=== PATIENT | male | born 1980 | race Caucasian/White ===

== ENCOUNTER 2016-09-10 01:31 | Emergency (ER) | payer OTHER ==
[~2016-09-10] VITALS: Ht 167.6 cm; Wt 87.1 kg
[~2016-09-10 01:31] MED LIST: CLIN-73 PO; HYDR-3498 PO; LORA-441 PO; ONDA4TAB35 PO; ZOF8 PO
[2016-09-10 01:35] VITALS: Ht 167.6 cm; Wt 87.1 kg
[2016-09-10] MEDS ORDERED: CETI10CA PO (02:46)
[2016-09-10] MEDS ORDERED: FLUT9.9S NASAL (02:46)
[2016-09-10] MEDS ORDERED: MECL12.574 PO (02:46)
--- NOTE | 2016-09-10 02:52 | ERD ---
ER Documentation Chief Complaint Date/Time DATE: 09/10/16 TIME: 02:48 Chief Complaint Pt c/o dizziness with head movement and concussion 2 yrs ago HPI 36-year-old male presents here in emergency department for complaints of dizziness, spinning sensation on sudden movement of the head. Patient has been having runny nose nasal congestion for the last 2 days. Patient feels really congested. Patient states that whenever he suddenly moved his head, he feels some dizziness. Patient has history of concussion 2 years ago, patient just recently had an MRI done 4 days ago, is reading for results. Patient denies any head injury. Patient denies any nausea vomiting. Patient denies any fever or chills. Patient did not have any purulent discharge from the nose. Patient does not have any ear discharge. Patient denies any ear pain. Patient denies any chest pain or palpitations. Patient denies any focal weakness numbness or tingling. Patient denies any changes in balance or memory. ROS All systems reviewed and are negative except as per history of present illness. Medications Home Meds Active Scripts Fluticasone Propionate (Flonase Allergy Relief) 9.9 Ml [place].susp, 1 SPRAY NASAL BID, #1 BOTTLE TO EACH NOSTRIL Prov:OPAL PRATT NP 09/10/16 Meclizine Hcl* (Antivert*) 12.5 Mg Tab, 25 MG PO Q6H Y for DIZZINESS, #20 TAB Prov:OPAL PRATT NP 09/10/16 Cetirizine Hcl* (Zyrtec*) 10 Mg Capsule, 10 MG PO DAILY, #30 TAB.CHEW Prov:OPAL PRATT NP 09/10/16 Ondansetron Hcl* (Zofran* ODT) 8 mg -ODT Tab.disper, 8 MG PO Q6 Y for NAUSEA AND /OR VOMITING, #8 TAB Prov:MANGO CARDONA MD 02/22/16 Lorazepam* (Ativan*) 0.5 Mg Tablet, 0.5 MG PO Q8, #15 TAB Prov:MANGO CARDONA MD 02/22/16 Ondansetron Hcl* (Zofran* ODT) 4 mg -ODT Tab.disper, 4 MG PO BID Y for NAUSEA AND/OR VOMITING, #10 TAB 0 Refills Prov:BETY VELÁSQUEZ PA-C 10/12/15 Hydrocodone Bit-Acetaminophen* ([place]*) 5-325 Mg Tab, 1 TAB PO Q6 Y for PAIN, # 7 TAB Prov:OPAL PRATT NP 10/11/15 Clindamycin Hcl* (Clindamycin Hcl*) 300 Mg Capsule, 300 MG PO TID for 10 Days, CAP Prov:OPAL PRATT NP 10/11/15 Reported Medications [none] Unknown Strength No Conflict Check 10/11/15 Allergies Allergies: Coded Allergies: Penicillins (Verified Allergy, Unknown, 02/22/16) ibuprofen (Verified Allergy, Unknown, INCREASED HEARTRATE, 02/22/16) PMhx/Soc Medical and Surgical Hx: pt denies Surgical Hx History of Surgery: Yes (WISDOM TEETH REMOVAL BOTTOM BILAT. ) Anesthesia Reaction: No Hx Neurological Disorder: Yes (concussion) Hx Respiratory Disorders: No Hx Cardiac Disorders: No Hx Psychiatric Problems: Yes (depression) Hx Miscellaneous Medical Probl: No Hx Alcohol Use: No Hx Substance Use: No Hx Tobacco Use: No Smoking Status: Never smoker FmHx Family History: No coronary disease, No diabetes, No other Physical Exam Vitals Vital Signs Date Time Temp Pulse Resp B/P Pulse Ox O2 Delivery O2 Flow Rate FiO2 09/10/16 01:35 97.8 73 16 128/86 98 Physical Exam GENERAL: The patient is well developed and appropriate for usual state of health, in no apparent distress. CHEST: Clear to auscultation bilaterally. There are no rales, wheezes or rhonchi. HEART: Regular rate and rhythm. No murmurs, clicks, rubs or gallops. No S3 or S4. ABDOMEN: Soft, nontender and nondistended. Good bowel sounds. No rebound or guarding. No gross peritonitis. No gross organomegaly or masses. No Barry sign or McBurney point tenderness. BACK: No midline or flank tenderness. EXTREMITIES: Equal pulses bilaterally. There is no peripheral clubbing, cyanosis or edema. No focal swelling or erythema. Full range of motion. Grossly neurovascularly intact. NEURO: Alert and oriented. Cranial nerves 2-12 intact. Motor strength in all 4 extremities with 5/5 strength. Sensation grossly intact. Normal speech and gait. Positive Cris-Hallpike exam. Patient negative Romberg sign. Negative pronator drift. SKIN: There is no apparent rash or petechia. The skin is warm and dry. HEMATOLOGIC AND LYMPHATIC: There is no evidence of excessive bruising or lymphedema. No gross cervical, axillary, or inguinal lymphadenopathy. Results 24 hrs I offered for patient of the CT scan of the brain but refused at this time, patient verbalized that he had an MRI of the brain done 4 days ago, and will wait for results in 2 days. Patient did not have any recent reinjury. Procedures/MDM Medical Decision Making: Patient symptoms aside is consistent with benign positional vertigo, most likely consistent with upper respiratory tract infection. There is low suspicion for neurological emergencies at this time since patients neurologic exam is normal. Patient did not have any altered level consciousness, vomiting, changes in balance or memory and did not have any recent head injury. CT scan of the brain not indicated at this time, also patient had an MRI of the brain done already. Patient was given prescription for meclizine, Zyrtec, Flonase, is advised to follow up with primary care doctor in 2-3 days for reevaluation of symptoms and to follow up with the results of MRI, patient was advised to return to emergency department for any worsening symptoms. Departure Diagnosis: Primary Impression: URI (upper respiratory infection) URI type: unspecified viral URI Qualified Code: J06.9 - Viral upper respiratory tract infection Additional Impression: Benign positional vertigo Laterality: unspecified laterality Qualified Code: H81.10 - Benign positional vertigo, unspecified laterality Condition: Stable Patient Instructions: Uri, Viral, No Abx (Adult) OPAL PRATT NP Sep 10, 2016 02:52
[2016-09-10 03:11] VITALS: BP 135/79; PULSE 65; RESP 16
[2016-09-11] MEDS ORDERED: FLUT9.9S NASAL (03:06)
== END 2016-09-10 03:10 | disposition home or self-care (01) ==
LOC: FTE 01:31
DX: J06.9 Acute upper respiratory infection, unspecified (principal); H81.10 Benign paroxysmal vertigo, unspecified ear
CPT/HCPCS: 99283

== ENCOUNTER 2016-09-11 02:15 | Emergency (ER) | payer OTHER ==
[~2016-09-11] VITALS: Ht 167.6 cm; Wt 89.7 kg
[~2016-09-11 02:15] MED LIST changes: +CETI10CA PO; +FLUT9.9S NASAL; +MECL12.574 PO
[2016-09-11 02:27] VITALS: Ht 167.6 cm; Wt 89.7 kg
[2016-09-11] MEDS ORDERED: FLUT9.9S NASAL (03:06)
--- NOTE | 2016-09-11 03:17 | ERD ---
ER Documentation Chief Complaint Date/Time DATE: 09/11/16 TIME: 03:15 Chief Complaint on and off nosebleeding x 2 weeks. no active nosebleeding HPI 36-year-old male presents to emergency department for complaints of on-and-off nosebleed episodes for the last 2 weeks, last episode was 2 hours prior to arrival. Patient has been having runny nose nasal congestion, was seen actually yesterday here for URI symptoms. Patient nasal bleeding has stopped already. Patient did not have any trauma in the nose. Patient denies any head injury. Patient denies any bruising. Patient denies any ecchymosis. Patient denies any other bleeding symptoms. ROS All systems reviewed and are negative except as per history of present illness. Medications Home Meds Active Scripts Fluticasone Propionate (Flonase Allergy Relief) 9.9 Ml [place].susp, 1 SPRAY NASAL BID, #1 BOTTLE TO EACH NOSTRIL Prov:OPAL PRATT NP 09/11/16 Fluticasone Propionate (Flonase Allergy Relief) 9.9 Ml [place].susp, 1 SPRAY NASAL BID, #1 BOTTLE TO EACH NOSTRIL Prov:OPAL PRATT NP 09/10/16 Meclizine Hcl* (Antivert*) 12.5 Mg Tab, 25 MG PO Q6H Y for DIZZINESS, #20 TAB Prov:OPAL PRATT NP 09/10/16 Cetirizine Hcl* (Zyrtec*) 10 Mg Capsule, 10 MG PO DAILY, #30 TAB.CHEW Prov:OPAL PRATT NP 09/10/16 Ondansetron Hcl* (Zofran* ODT) 8 mg -ODT Tab.disper, 8 MG PO Q6 Y for NAUSEA AND /OR VOMITING, #8 TAB Prov:MANGO CARDONA MD 02/22/16 Lorazepam* (Ativan*) 0.5 Mg Tablet, 0.5 MG PO Q8, #15 TAB Prov:MANGO CARDONA MD 02/22/16 Ondansetron Hcl* (Zofran* ODT) 4 mg -ODT Tab.disper, 4 MG PO BID Y for NAUSEA AND/OR VOMITING, #10 TAB 0 Refills Prov:BETY VELÁSQUEZ PA-C 10/12/15 Hydrocodone Bit-Acetaminophen* ([place]*) 5-325 Mg Tab, 1 TAB PO Q6 Y for PAIN, # 7 TAB Prov:OPAL PRATT NP 10/11/15 Clindamycin Hcl* (Clindamycin Hcl*) 300 Mg Capsule, 300 MG PO TID for 10 Days, CAP Prov:OPAL PRATT CHASSIS DRIVER 10/11/15 Reported Medications [none] Unknown Strength No Conflict Check 10/11/15 Allergies Allergies: Coded Allergies: Penicillins (Verified Allergy, Unknown, 02/22/16) ibuprofen (Verified Allergy, Unknown, INCREASED HEARTRATE, 02/22/16) PMhx/Soc History of Surgery: Yes (WISDOM TEETH REMOVAL BOTTOM BILAT. ) Anesthesia Reaction: No Hx Neurological Disorder: Yes (concussion) Hx Respiratory Disorders: No Hx Cardiac Disorders: No Hx Psychiatric Problems: Yes (depression) Hx Miscellaneous Medical Probl: No (TBI) Hx Alcohol Use: No Hx Substance Use: No Hx Tobacco Use: No FmHx Family History: No coronary disease, No diabetes, No other Physical Exam Vitals Vital Signs Date Time Temp Pulse Resp B/P Pulse Ox O2 Delivery O2 Flow Rate FiO2 09/11/16 02:27 97.7 80 20 127/79 98 Physical Exam GENERAL: The patient is well developed and appropriate for usual state of health, in no apparent distress. HEENT: Atraumatic. Ears: Normal tympanic membrane, no erythema or bulging. No ear canal swelling. No ear discharge. Nose: normal nasal turbinates, thick crusts of dry blood in bilateral naris. No active bleeding noted at this time. Throat: oropharynx clear. No tonsillar swelling or tonsillar exudates. No lymphadenopathy. CHEST: Clear to auscultation bilaterally. There are no rales, wheezes or rhonchi. HEART: Regular rate and rhythm. No murmurs, clicks, rubs or gallops. No S3 or S4. ABDOMEN: Soft, nontender and nondistended. Good bowel sounds. No rebound or guarding. No gross peritonitis. No gross organomegaly or masses. No Barry sign or McBurney point tenderness. BACK: No midline or flank tenderness. EXTREMITIES: Equal pulses bilaterally. There is no peripheral clubbing, cyanosis or edema. No focal swelling or erythema. Full range of motion. Grossly neurovascularly intact. NEURO: Alert and oriented. Cranial nerves 2-12 intact. Motor strength in all 4 extremities with 5/5 strength. Sensation grossly intact. Normal speech and gait. SKIN: There is no apparent rash or petechia. The skin is warm and dry. HEMATOLOGIC AND LYMPHATIC: There is no evidence of excessive bruising or lymphedema. No gross cervical, axillary, or inguinal lymphadenopathy. Procedures/MDM Medical decision making: Patient symptoms is likely consistent with epistaxis, Patient states that he has been blowing his nose hard and assessment he get blood streaks from the nasal discharge. It stops immediately afterwards. Patient does not have any other bleeding symptoms. Patient does not have any active bleeding from the nose at this time. Patient did not have any trauma in the nose. Patient was given for Flonase, is advised to apply Vaseline and bilateral naris, patient is advised to follow with primary doctor to 3 days for reevaluation of symptoms. Patient was advised to return to emergency department for any worsening symptoms. Departure Diagnosis: Primary Impression: Epistaxis Condition: Stable Patient Instructions: Epistaxis (Adult) Referrals: ELYSE WOODARD (PCP) Additional Instructions: apply vaseline both nares OPAL PRATT NP Sep 11, 2016 03:17
[2016-09-11 03:40] VITALS: BP 139/79; PULSE 66; RESP 18; TEMP 98.3
== END 2016-09-11 03:40 | disposition home or self-care (01) ==
LOC: FTE 02:15
DX: R04.0 Epistaxis (principal)
CPT/HCPCS: 99283

== ENCOUNTER 2016-09-15 03:08 | Emergency (ER) | payer OTHER ==
[~2016-09-15] VITALS: Ht 167.6 cm; Wt 86.8 kg
[2016-09-15 03:14] VITALS: Ht 167.6 cm; Wt 86.8 kg
[2016-09-15] MEDS ORDERED: ONDANSETRON (ODT) 4 MG TAB ODT STA (04:53)
[2016-09-15] MEDS ORDERED: MECLIZINE 12.5 MG TAB PO ONE (05:00)
[2016-09-15] MEDS ORDERED: MECL12.574 PO (05:01)
[2016-09-15] MEDS ORDERED: ONDA4TAB14 PO (05:01)
--- NOTE | 2016-09-15 05:06 | ERA ---
ER Documentation Chief Complaint Date/Time DATE: 09/15/16 TIME: 05:04 Chief Complaint dizziness on and off x 2 weeks HPI This is a 36-year-old male presenting to the emergency department complaining of on and off dizziness for the past couple weeks. Patient states that he feels as if the room is spinning whenever he turns his head. He complains of nausea with one episode of vomiting yesterday and feeling imbalanced. Patient denies any headache, vision changes, tinnitus, hearing loss. Patient has not taken any medications for this. Patient states had an MRI of the brain in the past and it was unremarkable. ROS All systems reviewed and are negative except as per history of present illness. Medications Home Meds Active Scripts Ondansetron (Ondansetron Odt) 4 Mg Tab.rapdis, 4 MG PO Q6H Y for NAUSEA AND/OR VOMITING, #14 TAB Prov:CECE LEWIS PA-C 09/15/16 Meclizine Hcl* (Antivert*) 12.5 Mg Tab, 25 MG PO Q6H Y for DIZZINESS, #30 TAB Prov:CECE LEWIS PA-C 09/15/16 Fluticasone Propionate (Flonase Allergy Relief) 9.9 Ml [place].susp, 1 SPRAY NASAL BID, #1 BOTTLE TO EACH NOSTRIL Prov:OPAL PRATT NP 09/11/16 Fluticasone Propionate (Flonase Allergy Relief) 9.9 Ml [place].susp, 1 SPRAY NASAL BID, #1 BOTTLE TO EACH NOSTRIL Prov:OPAL PRATT NP 09/10/16 Meclizine Hcl* (Antivert*) 12.5 Mg Tab, 25 MG PO Q6H Y for DIZZINESS, #20 TAB Prov:OPAL PRATT NP 09/10/16 Cetirizine Hcl* (Zyrtec*) 10 Mg Capsule, 10 MG PO DAILY, #30 TAB.CHEW Prov:OPAL PRATT NP 09/10/16 Ondansetron Hcl* (Zofran* ODT) 8 mg -ODT Tab.disper, 8 MG PO Q6 Y for NAUSEA AND /OR VOMITING, #8 TAB Prov:MANGO CARDONA MD 02/22/16 Lorazepam* (Ativan*) 0.5 Mg Tablet, 0.5 MG PO Q8, #15 TAB Prov:MANGO CARDONA MD 02/22/16 Ondansetron Hcl* (Zofran* ODT) 4 mg -ODT Tab.disper, 4 MG PO BID Y for NAUSEA AND/OR VOMITING, #10 TAB 0 Refills Prov:BETY VELÁSQUEZ PA-C 10/12/15 Hydrocodone Bit-Acetaminophen* ([place]*) 5-325 Mg Tab, 1 TAB PO Q6 Y for PAIN, # 7 TAB Prov:OPAL PRATT NP 10/11/15 Clindamycin Hcl* (Clindamycin Hcl*) 300 Mg Capsule, 300 MG PO TID for 10 Days, CAP Prov:OPAL PRATT TECHNOLOGY SOLUTIONS ARCHITECT 10/11/15 Reported Medications [none] Unknown Strength No Conflict Check 10/11/15 Allergies Allergies: Coded Allergies: Penicillins (Verified Allergy, Unknown, 09/15/16) ibuprofen (Verified Allergy, Unknown, INCREASED HEARTRATE, 09/15/16) PMhx/Soc Medical and Surgical Hx: pt denies Medical Hx, pt denies Surgical Hx History of Surgery: Yes (WISDOM TEETH REMOVAL BOTTOM BILAT. ) Anesthesia Reaction: No Hx Neurological Disorder: Yes (concussion) Hx Respiratory Disorders: No Hx Cardiac Disorders: No Hx Psychiatric Problems: Yes (depression) Hx Miscellaneous Medical Probl: No (TBI) Hx Alcohol Use: No Hx Substance Use: No Hx Tobacco Use: No Smoking Status: Never smoker Physical Exam Vitals Vital Signs Date Time Temp Pulse Resp B/P Pulse Ox O2 Delivery O2 Flow Rate FiO2 09/15/16 03:14 97.5 75 20 130/87 98 Physical Exam GENERAL: well-developed/well-nourished, in no apparent distress, non-toxic appearing HENT: NC/AT, bilateral tympanic membrane is normal with good cone of light, nares patent, oropharynx clear without exudates EYES: Conjunctiva normal, PERRLA, EOMI, no nystagmus noted NECK: Supple, no lymphadenopathy PULM: CTA bilaterally, no rales, rhonchi, or wheezing heard CV: Normal S1S2, RRR, good capillary refill GI: Soft, non-distended, normal bowel sounds, non-tender BACK: No midline tenderness, no masses, No CVAT EXT: No clubbing, cyanosis, or edema NEURO: Alert and orientated to person, place, and time. CN II-IIX intact. Gait and coordination were normal. Hand records management clerk strength were equal and within normal limits SKIN: Intact, normal turgor PSYCH: Normal mood and mentation, patient denied SI Results 24 hrs Current Medications Medications (Trade) Dose Ordered Sig/Gurwinder Route PRN Reason Start Time Stop Time Status Last Admin Dose Admin Meclizine HCl (Antivert) 25 mg ONCE ONCE PO 09/15/16 05:00 09/15/16 05:01 DC Ondansetron HCl (Zofran Odt) 8 mg ONCE STAT ODT 09/15/16 04:53 09/15/16 04:55 DC Procedures/MDM MDM: 36-year-old male presents to the ER with vertigo. My clinical suspicion for benign paroxysmal positional vertigo is high due to physical examination. Symptoms were reproduced with movement of head. My other differentials include but not limited to include labyrinthitis, vestibular neuritis, Mnire's disease , acoustic neuroma, otitis media and central causes such as vestibular migraine , brainstem ischemia, and multiple sclerosis. Patient did not have neurological symptoms, headaches, tinnitus or hearing loss. I do not think a CT scan is necessary at this time, as I believe the risks outweigh the benefits since symptoms are most consistent with benign positional vertigo. However, I have given strict precautions to return to the ER if condition is not improving as expected or if condition worsens. In the ED, patient was given Antivert 25mg and Zofran 8mg ODT. DISPOSITION: hemodynamically stable. I have discussed the pathology of the condition. Prescriptions Antivert and Zofran have been given. I have discussed to see a primary care physician for follow-up examination and management. Discussed to return to the ER if condition worsens or not improves as expected. Patient expressed that they agreed and understood this plan. Departure Diagnosis: Primary Impression: Vertigo Condition: Stable Patient Instructions: Inner Ear Problems: Causes of Dizziness (Vertigo), Benign Positional Vertigo, Vertigo, Unspecified Additional Instructions: FOLLOW UP WITH YOUR PRIMARY CARE PHYSICIAN TOMORROW.Return to this facility if you are not improving as expected. Take all medicines as directed. Return to this facility if you are not improving as expected. You have been given a medicine which may cause drowsiness.DO NOT DRIVE OR OPERATE DANGEROUS MACHINERY while taking this medicine! CECE LEWIS PA-C Sep 15, 2016 05:06
[2016-09-16] MEDS ORDERED: SODI126M NASAL (01:45)
== END 2016-09-15 05:46 | disposition home or self-care (01) ==
LOC: FTE 03:08
DX: R42 Dizziness and giddiness (principal); R11.2 Nausea with vomiting, unspecified
CPT/HCPCS: Z7502; Z7610; 99283

== ENCOUNTER 2016-09-15 22:51 | Emergency (ER) | payer OTHER ==
[~2016-09-15] VITALS: Ht 167.6 cm; Wt 81.0 kg
[~2016-09-15 22:51] MED LIST changes: +ONDA4TAB14 PO
[2016-09-15 22:53] VITALS: Ht 167.6 cm; Wt 81.0 kg
[2016-09-16] MEDS ORDERED: SODI126M NASAL (01:45)
--- NOTE | 2016-09-16 01:56 | ERD ---
ER Documentation Chief Complaint Date/Time DATE: 09/16/16 TIME: 01:46 Chief Complaint FACE PAIN WITH ABDOMINAL PAIN MORE THAN A WEEK HPI 36-year-old male presented to ED with vague complaints. Patient wants complete checkup done in the ED today. Patient was seen here less than 24 hours ago for vertigo. He was given meclizine and Zofran. Patient stated that those medications helped his vertigo symptoms. However, he felt lightheaded after taking the medication. Is also complaining of mild epistaxis for several days, with left nasal pain. Denies fever or chills. Denies cough or shortness breath. Denies abdominal pain, vomiting, or diarrhea. ROS All systems reviewed and are negative except as per history of present illness. Medications Home Meds Active Scripts Sodium Chloride (Saline Nasal Mist) 126 Ml Mist, 2 SPRAY NASAL Q2H Y for NASAL CONGESTION, #1 BOTTLE Prov:DEV BRITTON NP 09/16/16 Ondansetron (Ondansetron Odt) 4 Mg Tab.rapdis, 4 MG PO Q6H Y for NAUSEA AND/OR VOMITING, #14 TAB Prov:CECE LEWIS PA-C 09/15/16 Meclizine Hcl* (Antivert*) 12.5 Mg Tab, 25 MG PO Q6H Y for DIZZINESS, #30 TAB Prov:CECE LEWIS PA-C 09/15/16 Fluticasone Propionate (Flonase Allergy Relief) 9.9 Ml [place].susp, 1 SPRAY NASAL BID, #1 BOTTLE TO EACH NOSTRIL Prov:OPAL PRATT NP 09/11/16 Fluticasone Propionate (Flonase Allergy Relief) 9.9 Ml [place].susp, 1 SPRAY NASAL BID, #1 BOTTLE TO EACH NOSTRIL Prov:OPAL PRATT NP 09/10/16 Meclizine Hcl* (Antivert*) 12.5 Mg Tab, 25 MG PO Q6H Y for DIZZINESS, #20 TAB Prov:OPAL PRATT NP 09/10/16 Cetirizine Hcl* (Zyrtec*) 10 Mg Capsule, 10 MG PO DAILY, #30 TAB.CHEW Prov:OPAL PRATT NP 09/10/16 Ondansetron Hcl* (Zofran* ODT) 8 mg -ODT Tab.disper, 8 MG PO Q6 Y for NAUSEA AND /OR VOMITING, #8 TAB Prov:MANGO CARDONA MD 02/22/16 Lorazepam* (Ativan*) 0.5 Mg Tablet, 0.5 MG PO Q8, #15 TAB Prov:MANGO CARDONA MD 02/22/16 Ondansetron Hcl* (Zofran* ODT) 4 mg -ODT Tab.disper, 4 MG PO BID Y for NAUSEA AND/OR VOMITING, #10 TAB 0 Refills Prov:BETY VELÁSQUEZ PA-C 10/12/15 Hydrocodone Bit-Acetaminophen* ([place]*) 5-325 Mg Tab, 1 TAB PO Q6 Y for PAIN, # 7 TAB Prov:OPAL PRATT NP 10/11/15 Clindamycin Hcl* (Clindamycin Hcl*) 300 Mg Capsule, 300 MG PO TID for 10 Days, CAP Prov:POAL PRATT NP 10/11/15 Reported Medications [none] Unknown Strength No Conflict Check 10/11/15 Allergies Allergies: Coded Allergies: Penicillins (Verified Allergy, Unknown, 09/15/16) ibuprofen (Verified Allergy, Unknown, INCREASED HEARTRATE, 09/15/16) PMhx/Soc History of Surgery: Yes (WISDOM TEETH REMOVAL BOTTOM BILAT. ) Anesthesia Reaction: No Hx Neurological Disorder: Yes (concussion) Hx Respiratory Disorders: No Hx Cardiac Disorders: No Hx Psychiatric Problems: Yes (depression) Hx Miscellaneous Medical Probl: No (TBI) Hx Alcohol Use: No Hx Substance Use: No Hx Tobacco Use: No Smoking Status: Never smoker Physical Exam Vitals Vital Signs Date Time Temp Pulse Resp B/P Pulse Ox O2 Delivery O2 Flow Rate FiO2 09/15/16 22:53 97.8 89 18 134/75 98 Physical Exam General impression: Well-developed, well-nourished. Alert, oriented, in no acute distress Head: Normocephalic, atraumatic. Eyes: PERRL, EOM normal. Conjunctiva not injected. ENT: Nasal mucosa erythematous and swollen with clear nasal discharge. No active epistaxis. Oral mucosa and oropharynx are normal. Neck: Supple, nontender. No lymphadenopathy. No nuchal rigidity. Respiration: Normal respiratory effort. Lungs clear to auscultate bilaterally. No wheezes, rales or rhonchi. Cardiovascular: Regular rate and rhythm. No murmurs or extra heart sounds. Abdomen: Abdomen normal to inspection. Nontender. No masses or organomegaly. Bowel sounds normal. Neuro: Mental status normal, speech normal. DIAGNOSTIC CARDIAC SONOGRAPHER grossly intact. Skin: Normal turgor. No rash or lesions. Psych: Appears depressed and anxious. Procedures/MDM Well-appearing 36-year-old male presented to ED with vague complaints, requesting complete checkup. He has been a frequent visitor of this ED in the last several days. Patient is noted to have a mild nasal discharge on exam, consistent with viral upper respiratory infection. His exam otherwise unremarkable. Low suspicion for pneumonia or bronchitis. Patient denies any neurological symptoms at this time. He does not have any abdominal pain, nausea , vomiting, diarrhea. I informed patient that he will need to go to his PCP for complete checkup. Education provided for patient on stopping epistaxis. Patient appears well, stable for discharge and outpatient management. Medical decision making shared with patient and family. Education provided to patient and family. Patient and family expressed understanding of the plan. Medications on discharge: Saline nasal spray. Follow-up: Primary care provider in 2-3 days or return to ED if worse. Departure Diagnosis: Primary Impression: URI (upper respiratory infection) URI type: acute nasopharyngitis (common cold) Qualified Code: J00 - Acute nasopharyngitis Condition: Good Patient Instructions: Adult Self-Care for Colds, Nosebleed Additional Instructions: Call your primary care doctor TOMORROW for an appointment during the next 2-3 days.See the doctor sooner or return here if your condition worsens before your appointment time. DEV BRITTON NP Sep 16, 2016 01:56
[2016-09-16 02:20] VITALS: BP 130/84; PULSE 73; TEMP 98.4
== END 2016-09-16 02:51 | disposition home or self-care (01) ==
LOC: FTE 22:51
DX: J00 Acute nasopharyngitis [common cold] (principal)
CPT/HCPCS: 99283

== ENCOUNTER 2017-01-11 04:03 | Emergency (ER) | payer OTHER ==
[~2017-01-11] VITALS: Ht 170.2 cm; Wt 86.5 kg
[~2017-01-11 04:03] MED LIST changes: +SODI126M NASAL
[2017-01-11 04:07] VITALS: Ht 170.2 cm; Wt 86.5 kg
--- NOTE | 2017-01-11 04:18 | ERA ---
ER Documentation Chief Complaint Date/Time DATE: 01/11/17 TIME: 04:17 Chief Complaint abd pain/vomiting/diarrhea x 3 days HPI The patient is a 36-year-old male, presenting to the ER because of epigastric abdominal pain intermittently for the last 3 days, he had similar symptoms previously. He denies fever, chills, neck pain, chest pain, dyspnea. He denies nausea, vomiting, dysuria, diarrhea, constipation. He does not smoke nor drink Past medical history: Gastritis, depression, anxiety Past surgical history: None ROS All systems reviewed and are negative except as per history of present illness. Medications Home Meds Active Scripts Pantoprazole* (Protonix*) 40 Mg Tablet.dr, 40 MG PO DAILY, #20 TAB Prov:NED LIN MD 01/11/17 Sodium Chloride (Saline Nasal Mist) 126 Ml Mist, 2 SPRAY NASAL Q2H Y for NASAL CONGESTION, #1 BOTTLE Prov:DEV BRITTON. [employer] 09/16/16 Ondansetron (Ondansetron Odt) 4 Mg Tab.rapdis, 4 MG PO Q6H Y for NAUSEA AND/OR VOMITING, #14 TAB Prov:CECE LEWIS PA-C 09/15/16 Meclizine Hcl* (Antivert*) 12.5 Mg Tab, 25 MG PO Q6H Y for DIZZINESS, #30 TAB Prov:CECE LEWIS PA-C 09/15/16 Fluticasone Propionate (Flonase Allergy Relief) 9.9 Ml [place].susp, 1 SPRAY NASAL BID, #1 BOTTLE TO EACH NOSTRIL Prov:OPAL PRATT NP 09/11/16 Fluticasone Propionate (Flonase Allergy Relief) 9.9 Ml [place].susp, 1 SPRAY NASAL BID, #1 BOTTLE TO EACH NOSTRIL Prov:OPAL PRTAT NP 09/10/16 Meclizine Hcl* (Antivert*) 12.5 Mg Tab, 25 MG PO Q6H Y for DIZZINESS, #20 TAB Prov:OPAL PRATT NP 09/10/16 Cetirizine Hcl* (Zyrtec*) 10 Mg Capsule, 10 MG PO DAILY, #30 TAB.CHEW Prov:OPAL PRATT NP 09/10/16 Ondansetron Hcl* (Zofran* ODT) 8 mg -ODT Tab.disper, 8 MG PO Q6 Y for NAUSEA AND /OR VOMITING, #8 TAB Prov:MANGO CARDONA MD 02/22/16 Lorazepam* (Ativan*) 0.5 Mg Tablet, 0.5 MG PO Q8, #15 TAB Prov:MANGO CARDONA MD 02/22/16 Ondansetron Hcl* (Zofran* ODT) 4 mg -ODT Tab.disper, 4 MG PO BID Y for NAUSEA AND/OR VOMITING, #10 TAB 0 Refills Prov:BETY VELÁSQUEZ PA-C 10/12/15 Hydrocodone Bit-Acetaminophen* ([place]*) 5-325 Mg Tab, 1 TAB PO Q6 Y for PAIN, # 7 TAB Prov:OPAL PRATT NP 10/11/15 Clindamycin Hcl* (Clindamycin Hcl*) 300 Mg Capsule, 300 MG PO TID for 10 Days, CAP Prov:OPAL PRATT NP 10/11/15 Reported Medications [none] Unknown Strength No Conflict Check 10/11/15 Allergies Allergies: Coded Allergies: Penicillins (Verified Allergy, Unknown, 09/15/16) ibuprofen (Verified Allergy, Unknown, INCREASED HEARTRATE, 09/15/16) PMhx/Soc History of Surgery: Yes (WISDOM TEETH REMOVAL BOTTOM BILAT. ) Anesthesia Reaction: No Hx Neurological Disorder: Yes (concussion) Hx Respiratory Disorders: No Hx Cardiac Disorders: No Hx Psychiatric Problems: Yes (depression) Hx Miscellaneous Medical Probl: No (TBI) Hx Alcohol Use: No Hx Substance Use: No Hx Tobacco Use: No Physical Exam Vitals Vital Signs Date Time Temp Pulse Resp B/P Pulse Ox O2 Delivery O2 Flow Rate FiO2 01/11/17 04:07 97.6 76 20 134/78 98 Physical Exam Const: No acute distress. Head: Atraumatic. Eyes: Normal Conjunctiva. ENT: Normal External Ears, Nose and Mouth. Neck: Full range of motion. No meningismus. Resp: Clear to auscultation bilaterally. Cardio: Regular rate and rhythm. Abd: Soft, non distended, normal bowel sounds, mild epigastric tenderness, no right lower quadrant, right upper quadrant, CVA, rigidity, rebound tenderness Skin: No petechiae or rashes. Back: No midline or flank tenderness. Ext: No cyanosis, or edema. Neur: Awake and alert. No focal deficit Psych: Normal Mood and Affect. Results 24 hrs Current Medications Medications (Trade) Dose Ordered Sig/Gurwinder Route PRN Reason Start Time Stop Time Status Last Admin Dose Admin Sodium Chloride (NS) 1,000 ml @ 1,000 mls/hr Q1H STAT IV 01/11/17 04:23 01/11/17 05:22 Cancel Morphine Sulfate (morphine) 2 mg ONCE STAT IV 01/11/17 04:23 01/11/17 04:24 Cancel Ondansetron HCl (Zofran Inj) 4 mg ONCE STAT IV 01/11/17 04:23 01/11/17 04:24 Cancel Pantoprazole (Protonix Iv) 40 mg ONCE ONCE IV 01/11/17 04:30 01/11/17 04:31 Cancel Pantoprazole (Protonix Tab) 40 mg ONCE ONCE PO 01/11/17 05:00 01/11/17 05:01 01/11/17 04:44 Procedures/MDM MEDICAL MAKING DECISION: The patient is a 36-year-old male, presenting to the ER because of chronic epigastric abdominal pain, most likely due to chronic gastritis and acute anxiety. He is currently awaiting for EGD. I have ordered CBC, CMP, lipase, urinalysis and gallbladder ultrasound, morphine IV, Zofran IV , Protonix IV; however he declined. He was treated with Protonix 40 mg p.o. with good response. Risks, benefits, alternatives were explained to the patient. Risks include but not limited to and permanent disability The differential diagnoses considered include but are not limited to cholelithiasis, cholecystitis, cystitis, pancreatitis, hepatitis, gastritis, peptic ulcer disease, gastric ulcer, appendicitis, diverticulitis, cholangitis, choledocholithiasis, partial small bowel obstruction. Departure Diagnosis: Primary Impression: Abdominal pain Condition: Good Comments He was discharged with Protonix I discussed the findings with the patient. I advised the patient to follow-up with the primary physician in about 1-2 days, sooner if needed and return if any concern. The patient's blood pressure was elevated (>120/80) but appears stable without evidence of hypertension emergency or urgency. The patient was counseled about the risks of hypertension and urged to pursue outpatient monitoring and therapy within a week with their primary care physician. NED LIN MD Jan 11, 2017 04:18
[2017-01-11] MEDS ORDERED: ONDANSETRON 4 MG INJ IV STA (04:23)
[2017-01-11] MEDS ORDERED: SOD CHLORIDE 0.9% 1,000 ML IV STA (04:23)
[2017-01-11] MEDS ORDERED: morphine 2 MG INJ IV STA (04:23)
[2017-01-11] MEDS ORDERED: PANTOPRAZOLE 40 MG INJ IV ONE (04:30)
[2017-01-11] MEDS ORDERED: PANT40TA3 PO (04:42)
[2017-01-11] MEDS ORDERED: PANTOPRAZOLE (EC) 40 MG TAB PO ONE (05:00)
== END 2017-01-11 04:51 | disposition home or self-care (01) ==
LOC: E/R 04:03
DX: R10.13 Epigastric pain (principal)
CPT/HCPCS: 99283; J7030

== ENCOUNTER 2017-12-24 12:24 | Emergency (ER) | END 2017-12-24 18:18 | disposition home or self-care (01) ==

== ENCOUNTER 2017-12-24 23:20 | Emergency (ER) | END 2017-12-25 04:10 | disposition home or self-care (01) ==

== ENCOUNTER 2018-01-26 23:32 | Emergency (ER) | END 2018-01-27 08:13 | disposition left against medical advice (07) ==